=== PATIENT | female | born 1995 | race African-American/Black ===

== ENCOUNTER 2017-05-25 14:11 | Emergency (ER) | payer OTHER ==
[~2017-05-25] VITALS: Ht 157.5 cm; Wt 70.5 kg
[2017-05-25 14:16] VITALS: BP 113/66; PULSE 75; TEMP 98.9
[2017-05-25] MEDS ORDERED: SINGULAIR 110 MG/TAB PO (14:18)
== END 2017-05-25 16:17 | disposition left against medical advice (07) ==
LOC: COL.ER 14:11
DX: S99.921A Unspecified injury of right foot, initial encounter (principal); W19.XXXA Unspecified fall, initial encounter

== ENCOUNTER 2018-04-21 18:38 | Emergency (ER) | payer OTHER ==
[~2018-04-21] VITALS: Ht 160 cm; Wt 72.7 kg
[~2018-04-21 18:38] MED LIST: SINGULAIR 110 MG/TAB PO
[2018-04-21 18:57] VITALS: TEMP 98.8
[2018-04-21] MEDS ORDERED: PROAIR HFA0.09 MG/AC IH (19:07)
[2018-04-21] MEDS ORDERED: ZOLOFT 50MG50 MG PO (19:08)
[2018-04-21] MEDS ORDERED: ATARAX 25MG25 MG/TAB PO (19:08)
[2018-04-21 20:40] LABS: COLLECTION METHOD CLEAN CATCH
[2018-04-21 20:47] LABS: PH 7 (5-8); SQUAMOUS EPITHELIAL 0-2 /hpf; URINE APPEARANCE Clear; URINE BACTERIA None Seen /hpf; URINE BILIRUBIN Negative (NEGATIVE); URINE BLOOD Negative (NEGATIVE); URINE COLOR Straw; URINE GLUCOSE Negative (NEGATIVE); URINE KETONE Negative (NEGATIVE); URINE LEUKOCYTE ESTERASE Negative (NEGATIVE); URINE NITRATE Negative (NEGATIVE); URINE PROTEIN(semi-quant) Negative (NEGATIVE); URINE RBC None Seen /hpf; URINE UROBILINOGEN Negative (NEGATIVE)
[2018-04-21 21:59] VITALS: BP 108/66; PULSE 66
== END 2018-04-21 22:01 | disposition home or self-care (01) ==
LOC: COL.ER 18:38
PROVIDERS: Physician Assistant
DX: M54.5 Low back pain (principal); J45.909 Unspecified asthma, uncomplicated

== ENCOUNTER 2018-12-17 16:40 | Emergency (ER) | payer OTHER ==
[~2018-12-17] VITALS: Ht 154.9 cm; Wt 79.5 kg
[~2018-12-17 16:40] MED LIST changes: +ATARAX 25MG25 MG/TAB PO; +PROAIR HFA0.09 MG/AC IH; +ZOLOFT 50MG50 MG PO
[2018-12-17 16:43] VITALS: BP 117/80; TEMP 98.5
[2018-12-17] MEDS ORDERED: COLACE 100100 MG/CAP PO (17:07)
[2018-12-17] MEDS ORDERED: NORMODYNE200 MG PO (17:08)
[2018-12-17] MEDS ORDERED: IRON TABLETS325 MG PO (17:08)
[2018-12-17 18:45] VITALS: PULSE 80
== END 2018-12-17 18:45 | disposition home or self-care (01) ==
LOC: COL.ER 16:40
DX: K59.00 Constipation, unspecified (principal); I10 Essential (primary) hypertension

== ENCOUNTER 2019-03-28 16:43 | Emergency (ER) | payer OTHER ==
[~2019-03-28] VITALS: Ht 160 cm; Wt 71.8 kg
[~2019-03-28 16:43] MED LIST changes: +COLACE 100100 MG/CAP PO; +IRON TABLETS325 MG PO; +NORMODYNE200 MG PO
[2019-03-28 17:00] VITALS: PULSE 85; TEMP 98
[2019-03-28 17:46] LABS: BASO # 0.1 (0.0-0.2); BASO % 0.3 % (0.0-2.0); EOS % 0.2 % (0-4.0); GRAN # 16.2 (1.4-6.5); GRAN % 82.7 % (42.2-75.2); HEMATOCRIT 38.6 % (37.0-47.0); LYMPH # 2.4 (1.2-3.4); LYMPH % 12.3 % (20.0-51.0); MEAN CELL VOLUME 79 fl (80.0-100.0); MEAN CORPUSCULAR HEMOGLOBIN 27 pg (27.0-31.0); MEAN CORPUSCULAR HGB CONC 34 g/dl (33.0-37.0); MEAN PLATELET VOLUME 12.5 fl (7.4-10.4); MONO # 0.8 (0.1-0.6); MONO % 3.9 % (1.7-9.3); PLATELET COUNT 287 K/mm3 (130-400); RED BLOOD COUNT 4.91 M/mm3 (4.10-5.30); REDCELL DISTRIBUTION WIDTH-CV 15.6 % (11.5-14.5)
[2019-03-28 18:01] LABS: ALBUMIN 4.9 gm/dL (3.5-5.0); BILIRUBIN,TOTAL 0.5 mg/dL (0.0-1.0); CALCIUM 9.9 mg/dL (8.4-10.2); CREATININE, serum 0.71 (0.52-1.25); POTASSIUM 4.2 mmol/L (3.4-5.0); TOTAL PROTEIN 8.9 gm/dL (6.4-8.2)
[2019-03-28 18:09] LABS: COLLECTION METHOD CLEAN CATCH
[2019-03-28 18:21] LABS: MUCOUS Present /lpf; PH 6 (5-8); SQUAMOUS EPITHELIAL 0-2 /hpf; URINE APPEARANCE Clear; URINE BACTERIA None Seen /hpf; URINE BILIRUBIN Negative (NEGATIVE); URINE BLOOD 3+ (NEGATIVE); URINE COLOR Yellow; URINE GLUCOSE Negative (NEGATIVE); URINE KETONE Negative (NEGATIVE); URINE LEUKOCYTE ESTERASE Negative (NEGATIVE); URINE NITRATE Negative (NEGATIVE); URINE PROTEIN(semi-quant) Negative (NEGATIVE); URINE RBC >50 /hpf; URINE UROBILINOGEN Negative (NEGATIVE)
[2019-03-28] MEDS ORDERED: NORCO 325 MG-51 TAB PO (19:46)
[2019-03-28] MEDS ORDERED: CEFTIN500 MG PO (19:46)
[2019-03-28] MEDS ORDERED: ZOFRAN ODT4 MG PO (19:46)
[2019-03-28] MEDS ORDERED: FLOMAX 0.40.4 MG/CAP PO (19:46)
[2019-03-28 22:00] VITALS: BP 139/83
== END 2019-03-28 20:00 | disposition home or self-care (01) ==
LOC: COL.ER 16:43
PROVIDERS: Emergency Medicine
DX: N20.1 Calculus of ureter (principal); J45.909 Unspecified asthma, uncomplicated; Z88.6 Allergy status to analgesic agent; Z88.8 Allergy status to other drugs, medicaments and biological substances
CPT/HCPCS: J1170; J2405; J2550; J7030; Q9967

== ENCOUNTER 2019-10-10 23:52 | Emergency (ER) | payer OTHER ==
[~2019-10-10] VITALS: Ht 157.5 cm; Wt 73.2 kg
[~2019-10-10 23:52] MED LIST changes: +CEFTIN500 MG PO; +FLOMAX 0.40.4 MG/CAP PO; +NORCO 325 MG-51 TAB PO; +ZOFRAN ODT4 MG PO
[2019-10-11 01:17] LABS: BASO % 0.2 % (0.0-2.0); EOS # 0.1 (0.0-0.7); EOS % 0.7 % (0-4.0); GRAN # 11.2 (1.4-6.5); GRAN % 69.3 % (42.2-75.2); LYMPH # 3.9 (1.2-3.4); LYMPH % 24.1 % (20.0-51.0); MEAN CELL VOLUME 83 fl (80.0-100.0); MEAN CORPUSCULAR HGB CONC 32 g/dl (33.0-37.0); MEAN PLATELET VOLUME 10.7 fl (7.4-10.4); MONO # 0.8 (0.1-0.6); MONO % 4.8 % (1.7-9.3); PLATELET COUNT 471 K/mm3 (130-400); RED BLOOD COUNT 3.41 M/mm3 (4.10-5.30); REDCELL DISTRIBUTION WIDTH-CV 15.5 % (11.5-14.5)
[2019-10-11 01:23] LABS: HEMATOCRIT 28.3 % (37.0-47.0); HEMOGLOBIN 9.1 g/dl (12.5-16.0); MEAN CORPUSCULAR HEMOGLOBIN 27 pg (27.0-31.0)
[2019-10-11 01:27] LABS: ALANINE AMINOTRANSFERASE 34 U/L (9-52); ALBUMIN 4.5 gm/dL (3.5-5.0); ALKALINE PHOSPHATASE 76 U/L (50-136); ANION GAP 9 mmol/L (7-16); AST,SGOT 32 U/L (15-37); BILIRUBIN,TOTAL 0.6 mg/dL (0.0-1.0); BLOOD UREA NITROGEN 12 mg/dL (7-17); CALCIUM 8.9 mg/dL (8.4-10.2); CARBON DIOXIDE 27 mmol/L (22-30); CHLORIDE 105 mmol/L (98-107); CREATININE, serum 0.63 (0.52-1.25); GLUCOSE 112 mg/dL (74-106); SODIUM 141 mmol/L (137-145); TOTAL PROTEIN 7.9 gm/dL (6.4-8.2)
[2019-10-11 01:28] LABS: C-REACTIVE PROTEIN < 0.5 mg/dL (0.0-0.9)
[2019-10-11] MEDS ORDERED: CEPHALEXIN500 M1 PO (01:38)
[2019-10-11 02:40] VITALS: BP 112/66; PULSE 66; TEMP 98.8
== END 2019-10-11 02:43 | disposition home or self-care (01) ==
LOC: COL.ER 23:52
PROVIDERS: Emergency Medicine
DX: N61.0 Mastitis without abscess (principal); J45.909 Unspecified asthma, uncomplicated; Z98.86 Personal history of breast implant removal
CPT/HCPCS: J0690; J2405; J3010; J7040

== ENCOUNTER 2020-01-19 18:53 | Emergency (ER) | payer OTHER ==
[~2020-01-19] VITALS: Ht 154.9 cm; Wt 79.1 kg
[~2020-01-19 18:53] MED LIST changes: +CEPHALEXIN500 M1 PO
[2020-01-19 18:56] VITALS: BP 128/83; TEMP 98.7
[2020-01-19] MEDS ORDERED: CEPHALEXIN500 M1 PO (19:44)
[2020-01-19 20:13] VITALS: PULSE 100
== END 2020-01-19 20:00 | disposition home or self-care (01) ==
LOC: COL.ER 18:53
DX: L73.9 Follicular disorder, unspecified (principal); Z88.6 Allergy status to analgesic agent; Z88.1 Allergy status to other antibiotic agents; Z88.8 Allergy status to other drugs, medicaments and biological substances